=== PATIENT | female | born 1990 ===

== ENCOUNTER 2019-09-22 21:45 | Emergency (ER) ==
--- NOTE | 2019-09-22 22:15 | EKG REPORT ---
SEVERITY:- NORMAL ECG - SINUS RHYTHM : Confirmed by: Mamie Marcum MD 22-Sep-2019 22:13:57
== END 2019-09-22 23:45 | disposition left against medical advice (07) ==
LOC: ER 21:45
DX: Z53.21 Procedure and treatment not carried out due to patient leaving prior to being seen by health care provider (principal)
CPT/HCPCS: 93005; 93010